=== PATIENT | male | born 1955 | race American Indian/Alaskan Native ===

== ENCOUNTER 2016-07-06 11:27 | Inpatient (IN) | payer OTHER ==
[2016-07-06] MEDS ORDERED: XOPENEX IH ONE (11:51)
--- NOTE | 2016-07-06 11:52 | Emergency Department Report ---
Chief Complaint: Dyspnea/Respdistress Stated Complaint: CHEST PAIN/SOB - HPI History of Present Illness: 61M PMH CHF p/w c/o dyspnea w/ exertion - ROS Review of Systems: shortness of breath w/ walking - Exam Vital Signs: Vital Signs 07/06/16 11:35 Temperature 98.2 F Pulse Rate 103 H Respiratory 24 Rate Blood Pressure 151/104 O2 Sat by Pulse 94 Oximetry Physical Exam: ? rhonchi b/l lung griffin on ausculation, heart s1/s2 MSE screening note: Focused history and physical exam performed. Due to findings the following was ordered: Screening Assessment/Plan/Differential Dx: Dyspnea, chest pain 1- This initial assessment/diagnostic orders/clinical plan/ treatment(s) is/are subject to change based on pt's health status, clinical progression and re- assessment by fellow clinical providers in the ED. Further treatment and workup at subsequent clinical provers discretion. Patient/guardians urged not to elope from ED as their condition may be serious if not clinically assessed and managed. 2-chest x-ray, EKG, proBNP, troponin, CK-MB 3-patient will require workup for decompensated CHF based on symptoms ED Medical Decision Making - Lab Data Result diagrams: 07/07/16 05:48 07/07/16 05:48 ED Disposition for MSE Clinical Impression: Chest pain, Shortness of breath, T wave inversion in EKG, Congestive heart failure Disposition: OP ADMITTED IP TO THIS HOSP Condition: Fair
--- NOTE | 2016-07-06 12:17 | XRay Report ---
Single view chest: History: Chest pain. Findings: Cardiomegaly. Trachea is midline. Pulmonary venous congestion. No consolidation, pneumothorax or pleural effusion. Impression: Probable early CHF.
--- NOTE | 2016-07-06 12:30 | Emergency Department Report ---
HPI - General Chief Complaint: Dyspnea/Respdistress Time Seen by Provider: 07/06/16 12:03 - HPI HPI: Room 1 The patient is a 61-year-old male presenting with a chief complaint of chest tightness and shortness of breath. The patient states for 2 weeks his had intermittent chest tightness and dyspnea on exertion. The patient states the dyspnea on exertion has worsened over the past 2-3 days. Patient denies orthopnea. Patient states the chest pain has been intermittent and associated with shortness of breath but denies nausea/vomiting or diaphoresis. Patient denies lower extremity edema. The patient currently gives his chest tightness score of 5/10. The patient states she's never had a stress test or cardiac catheterization Location: Chest, lungs Duration: 2 weeks Quality: Tightness Severity: 5/10 Modifying factors: Exertion brings on dyspnea Context: [see above] Mode of transportation: Unknown ED Past Medical Hx - Past Medical History Previous Medical History?: No - Surgical History Past Surgical History?: Yes Additional Surgical History: Right heel fusion - Family History Family history: no significant - Social History Smoking Status: Former Smoker (none 2 years) Substance Use Type: Alcohol (occasional), Marijuana - Medications Home Medications: Home Medications Medication Instructions Recorded Confirmed Last Taken Type No Known Home Medications [No 07/06/16 07/06/16 Unknown History Reported Home Medications] ED Review of Systems ROS: Stated complaint: CHEST PAIN/SOB Other details as noted in HPI Comment: All other systems reviewed and negative Constitutional: denies: chills, fever Eyes: denies: eye pain, eye discharge, vision change ENT: denies: ear pain, throat pain Respiratory: shortness of breath, SOB with exertion. denies: orthopnea Cardiovascular: chest pain Endocrine: no symptoms reported Gastrointestinal: denies: abdominal pain, nausea, diarrhea Genitourinary: denies: urgency, dysuria Musculoskeletal: denies: back pain, joint swelling, arthralgia Skin: denies: rash, lesions Neurological: denies: headache, weakness, paresthesias Psychiatric: denies: anxiety, depression Hematological/Lymphatic: denies: easy bleeding, easy bruising Physical Exam - Physical Exam Vital Signs: Vital Signs 07/06/16 07/06/16 07/06/16 11:35 11:56 12:02 Temperature 98.2 F Pulse Rate 103 H 107 H Respiratory 24 18 18 Rate Blood Pressure 151/104 Blood Pressure 166/89 [Right] O2 Sat by Pulse 94 95 94 Oximetry Physical Exam: GENERAL: The patient is well-developed well-nourished male lying on stretcher not appearing to be in acute distress. [] HEENT: Normocephalic. Atraumatic. Extraocular motions are intact. Patient has moist mucous membranes. NECK: Supple. Trachea midline CHEST/LUNGS: Slight crackles at the right base. Breath sounds bilaterally. There is no respiratory distress noted. HEART/CARDIOVASCULAR: Regular. There is no tachycardia. There is no gallop rub or murmur. ABDOMEN: Abdomen is soft, nontender. Patient has normal bowel sounds. There is no abdominal distention. SKIN: There is no rash. There is no edema. There is no diaphoresis. NEURO: The patient is awake, alert, and oriented. The patient is cooperative. The patient has normal speech MUSCULOSKELETAL: There is no evidence of acute injury. ED Course Vital Signs 07/06/16 07/06/16 07/06/16 11:35 11:56 12:02 Temperature 98.2 F Pulse Rate 103 H 107 H Respiratory 24 18 18 Rate Blood Pressure 151/104 Blood Pressure 166/89 [Right] O2 Sat by Pulse 94 95 94 Oximetry ED Medical Decision Making - Lab Data Result diagrams: 07/06/16 12:19 07/06/16 12:19 Laboratory Tests 07/06/16 07/06/16 07/06/16 12:19 12:19 12:19 WBC 9.3 RBC 4.37 Hgb 14.7 Hct 43.2 MCV 99 H MCH 34 H MCHC 34 RDW 13.1 L Plt Count 230 Lymph % (Auto) 39.9 H Levy % (Auto) 7.4 H Eos % (Auto) 2.0 Baso % (Auto) 0.4 Lymph # 3.7 Levy # 0.7 Eos # 0.2 Baso # 0.0 Seg Neutrophils % 50.3 Seg Neutrophils # 4.7 PT 13.0 INR 0.99 APTT 29.4 Sodium 140 Potassium 3.8 Chloride 99.7 Carbon Dioxide 27 Anion Gap 17 BUN 11 Creatinine 0.9 Estimated GFR > 60 BUN/Creatinine Ratio 12.22 Glucose 87 Calcium 8.7 Total Bilirubin 1.1 Direct Bilirubin 0.2 Indirect Bilirubin 0.9 AST 33 ALT 34 Alkaline Phosphatase 70 Total Creatine Kinase 247 H CK-MB (CK-2) 3.1 CK-MB (CK-2) Rel Index 1.2 Troponin T < 0.010 NT-Pro-B Natriuret Pep Total Protein 8.3 H Albumin 4.4 Albumin/Globulin Ratio 1.1 07/06/16 12:19 WBC RBC Hgb Hct MCV MCH MCHC RDW Plt Count Lymph % (Auto) Levy % (Auto) Eos % (Auto) Baso % (Auto) Lymph # Levy # Eos # Baso # Seg Neutrophils % Seg Neutrophils # PT INR APTT Sodium Potassium Chloride Carbon Dioxide Anion Gap BUN Creatinine Estimated GFR BUN/Creatinine Ratio Glucose Calcium Total Bilirubin Direct Bilirubin Indirect Bilirubin AST ALT Alkaline Phosphatase Total Creatine Kinase CK-MB (CK-2) CK-MB (CK-2) Rel Index Troponin T NT-Pro-B Natriuret Pep 1111 H Total Protein Albumin Albumin/Globulin Ratio - EKG Data -: EKG Interpreted by Me EKG shows normal: sinus rhythm Rate: normal - EKG Data When compared to previous EKG there are: previous EKG unavailable Interpretation: nonspecific ST-T wave magui (T-wave inversions in leads 2, 3, aVF , V5, V6) - Radiology Data Radiology results: image reviewed (chest x-ray) interpreted by me: Chest [id number] hilar fullness with early cephalization. Likely CHF - Differential Diagnosis CHF, ACS, pneumonia Critical care attestation.: If time is entered above; I have spent that time in minutes in the direct care of this critically ill patient, excluding procedure time. ED Disposition Clinical Impression: Chest pain, Shortness of breath, T wave inversion in EKG, Congestive heart failure Disposition: OP ADMITTED IP TO THIS HOSP Is pt being admited?: Yes Does the pt Need Aspirin: Yes Condition: Fair Instructions: Chest Pain (ED) Time of Disposition: 13:01 (hospitalist paged)
[2016-07-06] MEDS ORDERED: ASPIRIN PO ONE (12:32)
[2016-07-06 12:45] LABS: Basophils % (Auto) 0.4 % (0.0-1.8); Hematocrit 43.2 % (35.5-45.6); Hemoglobin 14.7 gm/dl (11.8-15.2); Mean Corpuscular HGB Conc 34 % (32-34); Mean Corpuscular Hemoglobin 34 pg (28-32); Mean Corpuscular Volume 99 fl (84-94); Platelet Count 230 K/mm3 (140-440); Red Blood Count 4.37 M/mm3 (3.65-5.03); Red Cell Distribution Width 13.1 % (13.2-15.2); White Blood Count 9.3 K/mm3 (4.5-11.0)
[2016-07-06 12:51] LABS: Creatine Kinase MB 3.1 ng/mL (0.0-4.0)
[2016-07-06 12:54] LABS: Alanine Aminotransferase 34 units/L (7-56); Albumin 4.4 g/dL (3.9-5); Albumin/Globulin Ratio 1.1 %; Alkaline Phosphatase 70 units/L (35-129); Anion Gap 17 mmol/L; BUN/Creatinine Ratio 12.22; Bilirubin,Direct 0.2 mg/dL (0-0.2); Bilirubin,Indirect 0.9 mg/dL; Bilirubin,Total 1.1 mg/dL (0.1-1.2); Blood Urea Nitrogen 11 mg/dL (9-20); Calcium 8.7 mg/dL (8.4-10.2); Carbon Dioxide 27 mmol/L (22-30); Chloride 99.7 mmol/L (98-107); Creatine Kinase 247 units/L (55-170); Glucose 87 mg/dL (75-100); INR 0.99 (0.87-1.13); Potassium 3.8 mmol/L (3.6-5.0); Sodium 140 mmol/L (137-145); Total Protein 8.3 g/dL (6.3-8.2)
[2016-07-06 12:55] LABS: Partial Thromboplastin Time 29.4 Sec. (24.2-36.6)
[2016-07-06] MEDS ORDERED: LASIX IV ONE (13:00)
--- NOTE | 2016-07-06 15:00 | Admit Criteria Form ---
Admission Criteria Documentation: HEART FAILURE: COMMON COMPLICATIONS Clinical Indications for Inpatient Care (Place 'X' for any and all applicable criteria): Ongoing inpatient care may be indicated for heart failure with ANY ONE of the following (1)(2)(3)(4)(5): [ ]I. Ongoing need for care for primary condition requiring frequent therapy adjustments because of changes in cardiac function (eg, drug dosage changes for drugs that are renally metabolized) [X]II. New-onset heart failure [ ]III. Heart failure with decreased urine output not responsive to attempts to optimize volume status [ ]IV. Acute cardiac ischemia causing or associated with failure [ ]V. Complications of heart failure, including ANY ONE of the following: [ ]a) Pericardial effusion [ ]b) Symptomatic pleural effusion [ ]c) O2 saturation <90% or PO2 < 60 mm Hg (8.0 kPa) on room air or require baseline supplemental O2 [ ]d) Tachypnea [ ]e) Dyspnea [ ]f) Syncope [ ]g) Change in mental status [ ]h) Acute renal insufficiency that is severe (reduction of more than 50% in estimated glomerular filtration rate from baseline) or progressive reduction of more than 25% in estimated glomerular filtration rate from baseline, with creatinine continuing to rise) [ ]i) Hemodynamic instability [ ]j) Anasarca [ ]k) Clinically significant metabolic abnormalities due to heart failure (eg, new-onset metabolic acidosis) Extended stay beyond goal length of stay for primary condition may be needed until ALL of the following are present(1)(3): [ ]a) Stable and effective diuretic regimen established (or patient on stable dialysis regimen if in chronic renal failure) [ ]b) Breathing comfortably at rest [ ]c) Saturation of arterial oxygen greater than 90% or at acceptable baseline [ ]d) Pulmonary edema absent or improved [ ]e) Hemodynamic stability [ ]f) Volume status acceptable on oral medication [ ]g) Peripheral or sacral edema absent or improved [ ]h) Renal function stable and manageable at a lower level of care [ ]i) Complications (eg, pleural effusion) resolved or manageable at a lower level of care [ ]j) Patient or caregiver has received written discharge instructions or educational material addressing activity level, diet, discharge medications, follow-up appointment, weight monitoring, and what to do if symptoms worsen The original [facility] content created by [employer] has been revised. The portions of the content which have been revised are identified through the use of italic text or in bold, and [facility] has neither reviewed nor approved the modified material.All other unmodified content is copyright [facility]. Please see references footnoted in the original [facility] edition 2016 Admission Criteria Met: Yes
--- NOTE | 2016-07-06 16:44 | Event Note ---
Date: 07/06/16 See H/p in reports CHF exacerbation -systolic failure
[2016-07-06] MEDS ORDERED: DULCOLAX PR PRN (16:46)
[2016-07-06] MEDS ORDERED: ZOFRAN IV PRN (16:46)
[2016-07-06] MEDS ORDERED: PERCOCET 5/325 PO PRN (16:46)
[2016-07-06] MEDS ORDERED: DILAUDID IV PRN (16:46)
[2016-07-06] MEDS ORDERED: MILK OF MAGNESIA PO PRN (16:46)
[2016-07-06] MEDS ORDERED: TYLENOL PO PRN (16:46)
[2016-07-06] MEDS ORDERED: SODIUM CHLORIDE FLUSH SYRINGE 10 ML IV PRN (16:52)
[2016-07-06 17:53] LABS: Creatine Kinase MB 2.8 ng/mL (0.0-4.0)
[2016-07-06 17:54] LABS: Creatine Kinase 235 units/L (55-170)
[2016-07-06] MEDS: LASIX IV SCH (17:56)
[2016-07-06 23:52] LABS: Creatine Kinase 210 units/L (55-170); Creatine Kinase MB 2.2 ng/mL (0.0-4.0)
[2016-07-07] MEDS: LASIX IV SCH ×2 (05:28→17:20)
[2016-07-07 06:09] LABS: Basophils % (Auto) 1.2 % (0.0-1.8); Eosinophils % (Auto) 2.1 % (0.0-4.3); Hematocrit 44.6 % (35.5-45.6); Hemoglobin 15.2 gm/dl (11.8-15.2); Mean Corpuscular HGB Conc 34 % (32-34); Mean Corpuscular Hemoglobin 33 pg (28-32); Mean Corpuscular Volume 98 fl (84-94); Platelet Count 238 K/mm3 (140-440); Red Blood Count 4.55 M/mm3 (3.65-5.03); White Blood Count 8.7 K/mm3 (4.5-11.0)
[2016-07-07 06:28] LABS: Alanine Aminotransferase 30 units/L (7-56); Albumin/Globulin Ratio 0.9 %; Alkaline Phosphatase 67 units/L (35-129); Anion Gap 20 mmol/L; Bilirubin,Total 1.3 mg/dL (0.1-1.2); Blood Urea Nitrogen 12 mg/dL (9-20); Calcium 8.8 mg/dL (8.4-10.2); Carbon Dioxide 25 mmol/L (22-30); Chloride 99.4 mmol/L (98-107); Glucose 95 mg/dL (75-100); Potassium 3.6 mmol/L (3.6-5.0); Sodium 141 mmol/L (137-145); Total Protein 8.3 g/dL (6.3-8.2)
[2016-07-07] MEDS: LOVENOX SUB-Q SCH (09:30)
[2016-07-07] MEDS ORDERED: LEXISCAN IV ONE ×2 (09:39→09:41)
--- NOTE | 2016-07-07 09:52 | History and Physical Report ---
CHIEF COMPLAINT: 1. Chest pain. 2. Worsening shortness of breath for 2 weeks. HISTORY OF PRESENT ILLNESS: A 61-year-old male who has been having increasing chest tightness and shortness of breath for about 2 weeks, more so for the last 2-3 days. Chest pain is intermittent and associated with shortness of breath, but denies nausea, vomiting, or diaphoresis. Denies lower extremity edema. Chest tightness 5 on a scale of 1-10. PAST MEDICAL HISTORY: None. PAST SURGICAL HISTORY: Right heel fusion. FAMILY HISTORY: No significant family history. SOCIAL HISTORY: Former smoker, stopped for the last 2 years ago. CURRENT MEDICATIONS: None. REVIEW OF SYSTEMS: Other than chest pain and shortness of breath, review of systems is essentially negative. A 14-point review of systems is done. PHYSICAL EXAMINATION: GENERAL: Elderly male, cooperative during examination. VITAL SIGNS: Temperature 98.2, pulse is 103, respirations 24, blood pressure 151/104, sats are 94%. HEENT: Unremarkable. GENERAL: Well-developed, well-nourished male in slight distress. NECK: Supple, no lymphadenopathy, no thyromegaly. CHEST AND LUNGS: Slight crackles in the right infrascapular area. Good air entry. CARDIOVASCULAR: S1, S2 heard. No gallop, no murmur, no rub. ABDOMEN: Soft and benign. No hepatosplenomegaly. No guarding, no rigidity. Hernial orifices are normal. EXTREMITIES: Good pedal pulses. No pedal edema. CENTRAL NERVOUS SYSTEM: Alert and oriented x 4. Nonfocal exam. SKIN: Normal. LABORATORY DATA: Labs are essentially normal. Electrolytes are normal. LFTs are normal. Alkaline phosphatase is 247. CK is normal. Total CK was , CK-MB 1.2, troponin is less than 0.010. BNP is 1111. EKG, normal sinus rhythm, no ST-T wave changes. Chest x-ray, bilateral hilar fullness with early cephalization, likely CHF. ASSESSMENT AND PLAN: 1. Acute congestive heart failure exacerbation, new onset. We will get echocardiogram and a stress test. Cardiology consult requested. 2. Chest pain, rule out myocardial infarction, chest pain protocol. 3. Hypertension. We will start the patient on losartan 100 mg daily. 4. Deep venous thrombosis prophylaxis, Lovenox 40 mg subcutaneous daily. [facility]# [id number] PATRICIA/FANTASMA VASQUES
[2016-07-07] MEDS ORDERED: K-DUR PO SCH (10:00)
--- NOTE | 2016-07-07 12:15 | Consultation ---
History of Present Illness Consult date: 07/07/16 Consult reason: congestive heart failure, shortness of breath History of present illness: The patient is a 61-year-old man who presented to the hospital with one week history of progressive shortness of breath, nonproductive cough and chest x-ray on presentation was consistent with acute pulmonary edema. Cardiomegaly was also noted on the chest x-ray. The patient was not on any outpatient medical therapy, a poor historian, denies any significant prior cardiac history. His blood pressure on presentation was 140-150 systolic. Today, he looks and feels more comfortable after initial diuretic therapy. A thallium stress test was ordered on admission by the medical team, which was performed today, results pending. In addition, the medical team ordered a cardiology consultation. Past History Past Medical History: hypertension Medications and Allergies Allergies Allergy/AdvReac Type Severity Reaction Status Date / Time No Known Allergies Allergy Unverified 07/06/16 11:35 Home Medications Medication Instructions Recorded Confirmed Last Taken Type No Known Home Medications [No 07/06/16 07/06/16 Unknown History Reported Home Medications] Active Meds: Active Medications Acetaminophen (Tylenol) 650 mg PO Q4H PRN PRN Reason: Pain MILD(1-3)/Fever >100.5/ARAYA Last Admin: 07/06/16 23:37 Dose: 650 mg Bisacodyl (Dulcolax) 10 mg WA QDAY PRN PRN Reason: Constipation unrelieved by MOM Enoxaparin Sodium (Lovenox) 40 mg SUB-Q QDAY [facility] Last Admin: 07/07/16 09:30 Dose: Not Given Furosemide (Lasix) 40 mg IV DAILY@0600 [facility] Last Admin: 07/07/16 05:28 Dose: 40 mg Hydromorphone HCl (Dilaudid) 0.5 mg IV Q3H PRN PRN Reason: Pain , Severe (7-10) Magnesium Hydroxide (Milk Of Magnesia) 30 ml PO Q4H PRN PRN Reason: Constipation Ondansetron HCl (Zofran) 4 mg IV Q8H PRN PRN Reason: N/V unrelieved by Reglan Oxycodone/Acetaminophen (Percocet 5/325) 1 tab PO Q6H PRN PRN Reason: Pain, Moderate (4-6) Potassium Chloride (K-Dur) 20 meq PO QDAY [facility] Last Admin: 07/07/16 09:30 Dose: Not Given Sodium Chloride (Sodium Chloride Flush Syringe 10 Ml) 10 ml IV PRN PRN PRN Reason: LINE FLUSH Review of Systems Cardiovascular: orthopnea, shortness of breath, no chest pain, no palpitations, no rapid/irregular heart beat, no edema, no syncope, no lightheadedness Physical Examination Vital Signs Temp Pulse Resp BP Pulse Ox 98.2 F 103 H 24 151/104 94 07/06/16 11:35 07/06/16 11:35 07/06/16 11:35 07/06/16 11:35 07/06/16 11:35 General appearance: no acute distress HEENT: Positive: PERRL Neck: Positive: neck supple Cardiac: Positive: Reg Rate and Rhythm Lungs: Positive: Decreased Breath Sounds, Rhonchi Neuro: Positive: Grossly Intact Abdomen: Positive: Soft Male genitourinary: Positive: deferred Skin: Positive: Clear Extremities: Absent: edema Results 07/07/16 05:48 07/07/16 05:48 Cardiac Enzymes 07/06/16 07/06/16 07/07/16 Range/Units 17:18 22:36 05:48 AST 28 (5-40) units/L CK-MB (CK-2) 2.8 2.2 (0.0-4.0) ng/mL CBC 07/07/16 Range/Units 05:48 WBC 8.7 (4.5-11.0) K/mm3 RBC 4.55 (3.65-5.03) M/mm3 Hgb 15.2 (11.8-15.2) gm/dl Hct 44.6 (35.5-45.6) % Plt Count 238 (140-440) K/mm3 Lymph # 4.1 (1.2-5.4) K/mm3 Edmunds # 0.7 (0.0-0.8) K/mm3 Eos # 0.2 (0.0-0.4) K/mm3 Baso # 0.1 (0.0-0.1) K/mm3 Comprehensive Metabolic Panel 07/07/16 Range/Units 05:48 Sodium 141 (137-145) mmol/L Potassium 3.6 (3.6-5.0) mmol/L Chloride 99.4 (98-107) mmol/L Carbon Dioxide 25 (22-30) mmol/L BUN 12 (9-20) mg/dL Creatinine 1.0 (0.8-1.5) mg/dL Glucose 95 (75-100) mg/dL Calcium 8.8 (8.4-10.2) mg/dL AST 28 (5-40) units/L ALT 30 (7-56) units/L Alkaline Phosphatase 67 (35-129) units/L Total Protein 8.3 H (6.3-8.2) g/dL Albumin 4.0 (3.9-5) g/dL EKG interpretations - Telemetry EKG Rhythm: Sinus Rhythm Assessment and Plan - Patient Problems (1) Congestive heart failure Current Visit: Yes Status: Acute Plan to address problem: Patient presents with what appears to be a new there is pulmonary edema on presenting chest x-ray, as well as cardiomegaly. Recommendations: Diuretic therapy, blood pressure control, aspirin and beta blockers. He will also need afterload reducing agents. Echocardiogram for left ventricular function assessment. A thallium stress test was ordered by the medical team, but the patient may ultimately need more aggressive, invasive ischemia evaluation.
--- NOTE | 2016-07-07 12:49 | Event Note ---
Thallium stress: Dilated cardiomyopathy, with reversible inferoapical defect. Recommend: Heart failure therapy-HOLGER, Coreg, diuretics, ASA. Cardiac cath in am.
--- NOTE | 2016-07-07 12:58 | Echocardiography Report ---
Transthoracic Echocardiogram Indication: CHF BP: 133/82 HR: 95 Conclusions *1. Dilated cardiomyopathy, EF 15-20%. *2. At least moderate MR. Findings Procedure Info: The study quality is fair. Left Ventricle: The left ventricular chamber size is severely dilated. Mild to moderate concentric left ventricular hypertrophy is observed. Severe global hypokinesis of the left ventricle is observed. Global left ventricular systolic function is severely decreased. The estimated ejection fraction is 15-20%. Left Atrium: The left atrium is moderately dilated. Right Ventricle: The right ventricular cavity size is normal. The right ventricular global systolic function is normal. Right Atrium: The right atrial cavity size is normal. Aortic Valve: The aortic valve is trileaflet. The aortic valve leaflets are moderately thickened. There is moderate thickening of the right coronary cusp. Mild aortic leaflet calcification is visualized. There is trace of aortic regurgitation. There is no evidence of aortic stenosis. Mitral Valve: The mitral valve leaflets appear myxomatous. The mitral valve leaflets are moderately thickened. There is moderate mitral regurgitation. There is no evidence of mitral stenosis. Tricuspid Valve: The tricuspid valve is not well visualized. There is trace tricuspid regurgitation. No pulmonary hypertension is noted. There is no tricuspid stenosis. Pulmonic Valve: The pulmonic valve is not well visualized. There is no evidence of pulmonic regurgitation. There is no pulmonic stenosis. Pericardium: There is no pericardial effusion. No pleural effusion is present. Aorta: There is no dilatation of the ascending aorta. There is no dilatation of the aortic root. Measurements Chambers 2D Name Value Normal Range IVSd (2D) 0.99 cm (0.6 - 1.1) LVPWd 0.9 cm - LVPWd (2D) 0.94 cm (0.6 - 1.1) IVS:LVPW ratio (2D) 1.06 ratio - LVIDd 5.3 cm - LVIDs 4.3 cm - LVIDd (2D) 5.33 cm (3.7 - 5.6) LVIDs (2D) 4.3 cm (2 - 3.8) LV FS (Teichholz) (2D) 19.3 % - LV FS (cube) (2D) 19.3 % - LV EF (2D) 35 % - EF Teichholz (2D) 39.3 % - LA dimension 3.7 cm - Ao root diameter (2D) 2.8 cm (2 - 3.7) LA dimension (AP) 2D 3.7 cm (1.9 - 4) LA:Ao ratio (2D) 1.32 ratio - Volumes/Mass Name Value Normal Range LA ESV SP 4CH (MOD) 52 ml - LV EDV SP 4CH (MOD) 175 ml - LV ESV SP 4CH (MOD) 86 ml - EF SP 4CH (MOD) 51 % - Diastolic/Systolic Function Name Value Normal Range MV E-wave Vmax 0.68 m/sec - MV deceleration time 238 msec - MV A-wave Vmax 0.73 m/sec - MV E:A ratio 0.9 ratio - LV septal e' Vmax 0.1 m/sec - LV lateral e' Vmax 0.07 m/sec - LV E:e' septal ratio 7 ratio - LV E:e' lateral ratio 10.1 ratio - Aortic Valve Name Value Normal Range AV Vmax 0.93 m/sec - AV peak gradient 3 mmHg - LVOT diameter 2.3 cm - LVOT Vmax 0.49 m/sec - LVOT peak gradient 1 mmHg - DAHIANA (continuity Vmax) 2.2 cm2 - Mitral Valve Name Value Normal Range MR Vmax 6.01 m/sec - MR VTI 191 cm - MR volume (PISA) 46 ml - MR flow (PISA) 145.1 ml/sec - MR ERO 0.24 cm2 - MR PISA radius 0.5 cm - MR alias Vmax 92.4 cm/sec - Pulmonic Valve/Qp:Qs Name Value Normal Range PV Vmax 0.81 m/sec - PV peak gradient 3 mmHg - PV acceleration time 98 msec -
[2016-07-07] MEDS ORDERED: NACL 0.9% 500 ML 500 ML IV SCH (13:00)
--- NOTE | 2016-07-07 13:12 | Treadmill Report ---
THALLIUM STRESS TEST LEFT VENTRICLE: Left ventricle is moderately to severely dilated. There is a small, reversible inferoapical perfusion defect. On the resting study, there is mild degree of reversibility. Gated analysis demonstrates severe left ventricular systolic dysfunction, ejection fraction 28%. CONCLUSION: Abnormal perfusion study, demonstrating a dilated cardiomyopathy, severe left ventricular systolic dysfunction, ejection fraction 28%. A small, partially reversible inferoapical defect may represent diaphragmatic attenuation artifact, but a mild degree of ischemia in this territory cannot be excluded. Clinical correlation is recommended. [facility]# [id number] CA/NTS
--- NOTE | 2016-07-07 14:02 | Progress Note ---
Assessment and Plan Assessment and plan: Acute systolic new onset heart failure - Echo done this morning and showed reduced ejection fraction - Abnormal stress test - Cardiology consulted - Plan to do cath tomorrow - Patient started on Lasix, beta darrell and ACEI - Patient is diuresed well Hypertension - Newly diagnosed - Controlled with blood pressure medications Prophylaxis - Lovenox Disposition - Continue inpatient care History Interval history: I have seen and evaluated this patient this afternoon after the echo and stress test. Shortness of breath is getting better. No cough, leg swelling. Hospitalist Physical - Physical exam Narrative exam: Not in cardiopulmonary distress. The patient appeared well nourished and normally developed. Vital signs as documented. Head exam is unremarkable. No scleral icterus . Neck is without jugular venous distension, thyromegaly, or carotid bruits. Lungs are clear to auscultation. Cardiac exam reveals regular rate and Rhythm. First and second heart sounds normal. No murmurs, rubs or gallops. Abdominal exam reveals normal bowel sounds, no masses, no organomegaly and no aortic enlargement. Extremities are nonedematous and both femoral and pedal pulses are normal. 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 No focal weakness. - Constitutional Vitals: Temp Pulse Resp BP Pulse Ox 98.6 F 67 20 137/95 96 07/07/16 05:55 07/07/16 11:22 07/07/16 05:55 07/07/16 10:34 07/07/16 10:00 General appearance: Present: no acute distress Results - Labs CBC & Chem 7: 07/07/16 05:48 07/07/16 05:48 Labs: Laboratory Last Values WBC 8.7 K/mm3 (4.5-11.0) 07/07/16 05:48 RBC 4.55 M/mm3 (3.65-5.03) 07/07/16 05:48 Hgb 15.2 gm/dl (11.8-15.2) 07/07/16 05:48 Hct 44.6 % (35.5-45.6) 07/07/16 05:48 MCV 98 fl (84-94) H 07/07/16 05:48 MCH 33 pg (28-32) H 07/07/16 05:48 MCHC 34 % (32-34) 07/07/16 05:48 RDW 13.0 % (13.2-15.2) L 07/07/16 05:48 Plt Count 238 K/mm3 (140-440) 07/07/16 05:48 Lymph % (Auto) 47.3 % (13.4-35.0) H 07/07/16 05:48 [place] % (Auto) 8.3 % (0.0-7.3) H 07/07/16 05:48 Eos % (Auto) 2.1 % (0.0-4.3) 07/07/16 05:48 Baso % (Auto) 1.2 % (0.0-1.8) 07/07/16 05:48 Lymph # 4.1 K/mm3 (1.2-5.4) 07/07/16 05:48 [place] # 0.7 K/mm3 (0.0-0.8) 07/07/16 05:48 Eos # 0.2 K/mm3 (0.0-0.4) 07/07/16 05:48 Baso # 0.1 K/mm3 (0.0-0.1) 07/07/16 05:48 Seg Neutrophils % 41.1 % (40.0-70.0) 07/07/16 05:48 Seg Neutrophils # 3.6 K/mm3 (1.8-7.7) 07/07/16 05:48 PT 13.0 Sec. (12.2-14.9) 07/06/16 12:19 INR 0.99 (0.87-1.13) 07/06/16 12:19 APTT 29.4 Sec. (24.2-36.6) 07/06/16 12:19 Sodium 141 mmol/L (137-145) 07/07/16 05:48 Potassium 3.6 mmol/L (3.6-5.0) 07/07/16 05:48 Chloride 99.4 mmol/L (98-107) 07/07/16 05:48 Carbon Dioxide 25 mmol/L (22-30) 07/07/16 05:48 Anion Gap 20 mmol/L 07/07/16 05:48 BUN 12 mg/dL (9-20) 07/07/16 05:48 Creatinine 1.0 mg/dL (0.8-1.5) 07/07/16 05:48 Estimated GFR > 60 ml/min 07/07/16 05:48 BUN/Creatinine Ratio 12.00 % 07/07/16 05:48 Glucose 95 mg/dL (75-100) 07/07/16 05:48 Hemoglobin A1c 6.4 % (4-6) H 07/06/16 17:18 Calcium 8.8 mg/dL (8.4-10.2) 07/07/16 05:48 Total Bilirubin 1.3 mg/dL (0.1-1.2) H 07/07/16 05:48 Direct Bilirubin 0.2 mg/dL (0-0.2) 07/06/16 12:19 Indirect Bilirubin 0.9 mg/dL 07/06/16 12:19 AST 28 units/L (5-40) 07/07/16 05:48 ALT 30 units/L (7-56) 07/07/16 05:48 Alkaline Phosphatase 67 units/L (35-129) 07/07/16 05:48 Total Creatine Kinase 210 units/L (55-170) H 07/06/16 22:36 CK-MB (CK-2) 2.2 ng/mL (0.0-4.0) 07/06/16 22:36 CK-MB (CK-2) Rel Index 1.0 (0-4) 07/06/16 22:36 Troponin T < 0.010 ng/mL (0.00-0.029) 07/06/16 22:36 NT-Pro-B Natriuret Pep 1111 pg/mL (0-900) H 07/06/16 12:19 Total Protein 8.3 g/dL (6.3-8.2) H 07/07/16 05:48 Albumin 4.0 g/dL (3.9-5) 07/07/16 05:48 Albumin/Globulin Ratio 0.9 % 07/07/16 05:48
[2016-07-07] MEDS: ZESTRIL PO SCH (14:20)
[2016-07-07] MEDS: ECOTRIN PO SCH (14:20)
[2016-07-07] MEDS: COREG PO SCH ×2 (14:20→21:17)
[2016-07-07] MEDS: NITRO-BID 2% TP SCH ×2 (14:21→17:20)
[2016-07-08] MEDS ORDERED: NACL 0.9% 500 ML 500 ML IV SCH (06:00)
[2016-07-08] MEDS: NITRO-BID 2% TP SCH (06:55)
[2016-07-08] MEDS: LASIX IV SCH (06:56)
[2016-07-08] MEDS ORDERED: ECOTRIN PO ONE (07:19)
[2016-07-08] MEDS ORDERED: HEPARIN 10,000 UNITS/10 ML ONE (07:25)
[2016-07-08] MEDS ORDERED: VERSED ONE (07:25)
[2016-07-08] MEDS ORDERED: CALAN ONE (07:25)
[2016-07-08] MEDS ORDERED: SUBLIMAZE ONE (07:25)
[2016-07-08] MEDS: ECOTRIN PO SCH (07:25)
[2016-07-08] MEDS ORDERED: HEPARIN/NS 5000 UNIT/500ML(CATH LAB) 1,000 ML IR ONE (07:25)
[2016-07-08] MEDS ORDERED: NITROGLYCERIN SYRINGE 3 ML ONE (07:26)
[2016-07-08] MEDS ORDERED: XYLOCAINE 2% INFILTRATI ONE (07:26)
--- NOTE | 2016-07-08 08:00 | Progress Note ---
Assessment and Plan Acute systolic heart failure Non-ischemic cardiomyopathy LVEF 15-20% Non-obstructive CAD LVEDP 16 mm Hg Moderate mitral regurgitation Recommendations: Continue asa 81 mg, carvedilol, lisinopril, aldactone and lasix 40 mg po daily May go home cardiac olivas Will schedule appt in 1 week with our office Subjective Date of service: 07/08/16 Principal diagnosis: Cardiomyopathy Interval history: A LHC was performed today without complications Objective Vital Signs Temp Pulse Pulse Resp BP BP Pulse Ox 07/08/16 06:55 68 100/67 07/08/16 05:39 97.9 F 68 18 100/67 96 07/08/16 04:20 98.1 F 68 20 111/61 97 07/08/16 01:42 97.8 F 70 20 102/57 95 07/07/16 21:17 72 109/71 07/07/16 20:52 72 109/71 07/07/16 20:11 97.3 F L 85 22 115/71 97 07/07/16 19:12 83 07/07/16 17:11 97.8 F 84 20 106/62 98 07/07/16 11:22 67 07/07/16 10:34 104 H 137/95 07/07/16 10:33 104 H 154/95 07/07/16 10:32 105 H 151/97 07/07/16 10:31 105 H 156/103 07/07/16 10:30 110 H 151/96 07/07/16 10:00 96 07/07/16 09:43 96 H 151/96 - Physical Examination HEENT: Positive: PERRL Neck: Positive: neck supple Cardiac: Positive: Reg Rate and Rhythm Lungs: Positive: Normal Exam Neuro: Positive: Grossly Intact Abdomen: Positive: Soft Skin: Positive: Clear Extremities: Absent: edema
[2016-07-08] MEDS: COREG PO SCH (09:37)
[2016-07-08] MEDS: ZESTRIL PO SCH (09:37)
[2016-07-08] MEDS: LOVENOX SUB-Q SCH (09:38)
[2016-07-08] MEDS ORDERED: LASIX PO SCH (10:00)
[2016-07-08] MEDS ORDERED: ALDACTONE PO SCH (10:00)
[2016-07-08] MEDS ORDERED: HALFPRIN EC PO SCH (10:00)
[2016-07-08] MEDS ORDERED: ECOTRIN PO SCH (10:00)
--- NOTE | 2016-07-08 10:00 | Cardiac Catherization Report ---
INDICATION FOR PROCEDURE: Cardiomyopathy, abnormal perfusion scan revealing reversible inferoapical defect suggesting ischemia. ORDERING PHYSICIAN: Dr. Hans Zelaya. PROCEDURES PERFORMED: 1. Selective left and right coronary angiography. 2. Left ventriculography. DESCRIPTION OF PROCEDURE: After obtaining written consent, the patient was draped using sterile technique. A 2% lidocaine was injected into the right wrist. A 5-Slovenian vascular sheath was inserted into the right radial artery. A 5-Slovenian JL3.5 catheter was used to selectively engage the left coronary artery. A 5-Slovenian JR4 catheter was used to selectively engage the right coronary artery. A 5-Slovenian JR4 catheter was used to hand inject the left ventriculogram. No complications occurred during the procedure. Hemostasis was achieved at the end of the procedure using manual pressure. Estimated blood loss was minimal. SPECIMEN REMOVED: None. FINDINGS: HEMODYNAMICS: Aortic pressure was 107/70 with an LV systolic pressure of 111 mmHg. The left ventricular end-diastolic pressure was measured at 16 mmHg. There was no significant gradient noted across the left ventricular outflow tract. CARDIAC STRUCTURES: The left ventricular cavity is dilated with evidence of severe global left ventricular hypokinesis. The left ventricular ejection fraction is estimated between 15% and 20%. CORONARY ANATOMY: 1. This is a right dominant circulation. 2. The left main is angiographically normal. 3. The LAD has less than or equal to 25% luminal irregularities. 4. The left circumflex artery has less than or equal to 25% luminal irregularities. 5. The right coronary artery is a dominant artery with less than or equal to 25% luminal irregularities. 6. There is evidence of slow coronary flow throughout the coronary circulation likely due to depressed cardiac output. IMPRESSION: 1. Nonobstructive minimal luminal irregularities with no evidence of flow limiting lesions throughout the coronary circulation. 2. Slow coronary flow, likely secondary to low cardiac output. 3. Severe global left ventricular hypokinesis with a left ventricular ejection fraction estimated between 15% and 20%. 4. Normal left ventricular end-diastolic pressure. RECOMMENDATIONS: Continue current medical therapy and heart failure medications. JOB# [id number] FLORI/FANTASMA
--- NOTE | 2016-07-08 11:07 | Discharge Summary ---
Providers - Providers Date of Admission: 07/06/16 17:07 Date of discharge: 07/08/16 Attending physician: MIKEY ROYAL MD 07/07/16 09:04 Consult to Physician [CONS] Routine Consulting Provider: OFELIA HUYNH Reason For Exam: [facility] consult to:: [facility] Notified:: luc Was contact made?: Yes Time called:: 09:39 07/08/16 08:02 Consult to Cardiac Rehabilitation [CONS] Routine Reason For Exam: Cardiac Rehab Evaluation Hospitalization Reason for admission: Acute systolic CHF, new onset Condition: Fair Pertinent studies: Echo Cardiac cath non obstructive cardiomyopathy with ejection fraction of 15-20% Hospital course: Patient is admitted for acute new onset systolic CHF after he was presented with shortness of breath, no edema. Cardiology consulted, echo and cardiac cath showed non obstructive cardiomyopathy with ejection fraction of 15-20%. Patient is treated with aspirin, carvedilol, lisinopril, Aldactone, Lasix 40 mg by mouth daily. The patient is going to be discharged with these medication and will have follow-up with [facility] and primary care physician within one week. Patient is stable for discharge. Disposition: DISCHARGED TO HOME OR SELFCARE Time spent for discharge: 31 minutes - Discharge Diagnoses (1) Chest pain Status: Acute (2) Congestive heart failure Status: Acute (3) Shortness of breath Status: Acute (4) T wave inversion in EKG Status: Acute Core Measure Documentation - Palliative Care Palliative Care/ Comfort Measures: Not Applicable - Core Measures Any of the following diagnoses?: none - Heart Failure Discharge Requirements HOLGER/ARB for LVSD if EF <40%: Yes Beta darrell at discharge: Yes Exam - Physical Exam Narrative exam: Not in cardiopulmonary distress. The patient appeared well nourished and normally developed. Vital signs as documented. Head exam is unremarkable. No scleral icterus . Neck is without jugular venous distension, thyromegaly, or carotid bruits. Lungs are clear to auscultation. Cardiac exam reveals regular rate and Rhythm. First and second heart sounds normal. No murmurs, rubs or gallops. Abdominal exam reveals normal bowel sounds, no masses, no organomegaly and no aortic enlargement. Extremities are nonedematous and both femoral and pedal pulses are normal. 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 No focal weakness. - Constitutional Vitals: Temp Pulse Resp BP Pulse Ox 97.9 F 73 18 130/75 96 07/08/16 05:39 07/08/16 09:37 07/08/16 05:39 07/08/16 09:37 07/08/16 05:39 Plan Activity: no restrictions Weight Bearing Status: Full Weight Bearing Diet: low cholesterol, low salt Follow up with: [facility] [Other] - 7 Days [facility] [Provider Group] - 7 [facility] Inst[facility] Prescriptions: Spironolactone [Aldactone] 12.5 mg PO QDAY #30 tablet Aspirin EC [Aspirin Enteric Coated TAB] 81 mg PO QDAY #30 tablet Carvedilol [Coreg] 6.25 mg PO BID #30 tablet Furosemide [Lasix TAB] 40 mg PO QDAY #30 tablet Lisinopril [Zestril TAB] 10 mg PO QDAY #30 tablet
[2016-07-08 12:52] VITALS: BP 120/75
== END 2016-07-08 13:28 | disposition home or self-care (01) | DRG 286 ==
LOC: ED 11:27 → 4A 17:07
PROVIDERS: ADMIT Internal Medicine; ATTEND Internal Medicine
PROC: 4A023N7 Measurement of Cardiac Sampling and Pressure, Left Heart, Percutaneous Approach (ICD-10-PCS; principal; 2016-07-08)
PROC: B2111ZZ Fluoroscopy of Multiple Coronary Arteries using Low Osmolar Contrast (ICD-10-PCS; 2016-07-08)
PROC: B2151ZZ Fluoroscopy of Left Heart using Low Osmolar Contrast (ICD-10-PCS; 2016-07-08)
DX: I11.0 Hypertensive heart disease with heart failure (principal); J81.0 Acute pulmonary edema; I42.0 Dilated cardiomyopathy; I50.23 Acute on chronic systolic (congestive) heart failure; I34.0 Nonrheumatic mitral (valve) insufficiency; R94.31 Abnormal electrocardiogram [ECG] [EKG]; Z98.890 Other specified postprocedural states; Z87.891 Personal history of nicotine dependence
CPT/HCPCS: 36415; 71020; 78452; 80048; 80053; 80074; 82550; 82553; 83036; 83880; 84484; 85025; 85610; 85730; 93005; 93010; 93017; 93306; 93458; 96374; A9502; C1894; J1170; J1644; J1650; J1940; J2250; J2785; J3010; J7040; Q9967

== ENCOUNTER 2017-08-07 14:48 | Emergency (ER) | payer OTHER ==
[2017-08-07 15:03] VITALS: BP 151/79
== END 2017-08-07 16:54 | disposition left against medical advice (07) ==
LOC: ED 14:48
DX: M25.569 Pain in unspecified knee (principal); Z53.21 Procedure and treatment not carried out due to patient leaving prior to being seen by health care provider